=== PATIENT | male | born 1980 | race African-American/Black ===

== ENCOUNTER → 2017-07-22 17:12 | Emergency (ER) | payer SELFPAY ==
[2017-07-22 18:17] LABS: Hematocrit 44 % (42-52); Hemoglobin 14.4 g/dl (14.0-18.0); Mean Corpuscular HGB Conc 33 g/dl (31-36); Mean Corpuscular Hemoglobin 24 pg (27-31); Mean Corpuscular Volume 74 fL (80-94); Mean Platelet Volume 8 um3 (7.4-10.4); Red Blood Count 5.97 10^6/ul (4.0-5.4); Red Cell Distribution Width 15 % (10.5-15); White Blood Count 6.6 10^3/ul (3.5-10.8)
[2017-07-22 18:18] LABS: Comments Flag Yes
[2017-07-22 18:19] LABS: Add Diff/Slide Review? Slide Review Added
[2017-07-22 18:49] LABS: Alcohol < 10 mg/dL (<10)
[2017-07-22 18:54] LABS: ALT 43 U/L (7-52); AST 30 U/L (13-39); Albumin 4.3 g/dL (3.2-5.2); Alkaline Phosphatase 68 U/L (34-104); Anion Gap 8 mmol/L (2-11); BUN/Creatinine Ratio 10.1 (8-20); Blood Urea Nitrogen 11 mg/dL (6-24); CO2 Carbon Dioxide 26 mmol/L (22-32); Chloride 104 mmol/L (101-111); EGFR African American 97.4 (>60); EGFR Non-African American 75.7 (>60); Globulin 2.9 g/dL (2-4); Glucose 87 mg/dL (70-100); Magnesium 1.9 mg/dL (1.9-2.7); Potassium 4.4 mmol/L (3.5-5.0); Sodium 138 mmol/L (133-145); Total Protein 7.2 g/dL (6.4-8.9)
--- NOTE | 2017-07-22 18:56 | RAD ---
Indication: New onset seizure. Comparison: May 07, 2014 Technique: Noncontrast CT vertex of skull through foramen magnum. Report: The sulci, ventricles, and basal cisterns are normal for age. Borges matter white matter differentiation is preserved without evidence for edema. No intra or extra axial hemorrhage, mass, or fluid collection detected. Unremarkable visualized orbital contents. Unremarkable calvarium and skull base. Unremarkable scalp. The visualized paranasal sinuses and mastoid air spaces are clear. IMPRESSION: Negative unenhanced head CT.
[2017-07-22 19:07] LABS: Hypochromasia 2+; Microcytosis 1+; Target Cells 2+
[2017-07-22 19:36] VITALS: BP 149/88
--- NOTE | 2017-07-27 12:02 | ED ---
Elia Arguelles Alfonso, scribed for Sourav Lauren MD on 07/22/17 at 1741 . Complex/Multi-Sys Presentation - HPI Summary HPI Summary: This patient is a 36 year old M BIBA from [facility] to [facility] with a chief complaint of seizures last night. He stopped consuming ETOH 5 days ago. Symptoms alleviated by spontaneous resolution. Patient reports chills, diaphoresis, tremors, jaw clenching, muscle tightness, headache occipital, and tiredness. Patient denies urinary inconstancy, biting tongue, head trauma, and palpitations. SHx of alcohol abuse (4 beers and 12 shots of tequila daily). He denies having had a seizure before. - History Of Current Complaint Time Seen by Provider: 07/22/17 17:34 Hx Obtained From: Patient Onset/Duration: Sudden Onset, Lasting Hours - last night, Resolved Timing: Constant Severity Currently: Moderate Severity Initially: Moderate Alleviating Factor(s): spontaneous resolution Associated Signs And Symptoms: Positive: Other - chills, diaphoresis, tremors, jaw clenching, muscle tightness, headache occipital, and tiredness. Patient denies urinary inconstancy, biting tongue, head trauma, and palpitations. Related History: Other - He stopped consuming ETOH 5 days ago. - Allergies/Home Medications Allergies/Adverse Reactions: Allergies Allergy/AdvReac Type Severity Reaction Status Date / Time No Known Allergies Allergy Verified 03/01/15 10:50 PMH/Surg Hx/FS Hx/Imm Hx Sensory History: Denies: Hx Deafness Opthamlomology History: Denies: Hx Legally Blind - Surgical History Surgery Procedure, Year, and Place: DENIES Infectious Disease History: Denies: Hx Clostridium Difficile, Hx Hepatitis, Hx Human Immunodeficiency Virus (HIV), Hx of Known/Suspected MRSA, Hx Shingles, Hx Tuberculosis, Hx Known/ Suspected VRE, Hx Known/Suspected VRSA, History Other Infectious Disease, Traveled Outside the [place] in Last 30 Days - Family History Known Family History: Positive: Diabetes - Social History Alcohol Use: Daily Alcohol Amount: Currently at [facility]. 4 beers and 12 shots of tequila daily. Substance Use Type: Reports: None Smoking Status (MU): Light Every Day Tobacco Smoker Type: Cigarettes Amount Used/How Often: 5-6 cigs daily Length of Time of Smoking/Using Tobacco: 18 YEARS Have You Smoked in the Last Year: Yes Review of Systems Positive: Chills, Skin Diaphoresis, Other - tremors. Negative: Fever Negative: Erythema Negative: Sore Throat Negative: Palpitations, Chest Pain Negative: Shortness Of Breath, Cough Negative: Abdominal Pain, Vomiting, Diarrhea Negative: dysuria, hematuria, incontinence Positive: Other - jaw clenching, muscle tightness. Negative: Edema Negative: Rash Neurological: Other - seziure, headache occipital, and tiredness; negative biting tongue, head trauma, dizziness All Other Systems Reviewed And Are Negative: Yes Physical Exam Triage Information Reviewed: Yes Vital Signs Reviewed: Yes Appearance: Positive: Well-Appearing, No Pain Distress, Well-Nourished Skin: Positive: Warm, Dry Head/Face: Positive: Normal Head/Face Inspection Eyes: Positive: Conjunctiva Clear ENT: Positive: Normal ENT inspection Neck: Positive: Other: - Musculoskeletal ROM normal neck. (-) JVD, (-) Stridor, (-) Tracheal deviation Respiratory/Lung Sounds: Positive: Other - Effort normal. (-) Respiratory distress, (-) Wheezes, (-) Rales Cardiovascular: Positive: Other - Rhythm regular, rate normal, Heart sounds normal; Intact distal pulses; The pedal pulses are 2+ and symmetric. Radial pulses are 2+ and symmetric. (-) Murmur Abdomen Description: Positive: Other: - Soft. (-) Tenderness, (-) Distension, ( -) Guarding, (-) Rebound Musculoskeletal: Negative: Edema Left, Edema Right Neurological: Positive: Other - Alert, Oriented x3, Strength normal, Cranial nerves II-XII are grossly intact. (-) Dysmetria, (-) Nystagmus, (-) Ataxia by finger to nose testing, (-) Sensory deficit. Psychiatric: Positive: Affect/Mood Appropriate - Alpha Coma Scale Best Eye Response: 4 - Spontaneous Best Motor Response: 6 - Obeys Commands Best Verbal Response: 5 - Oriented Diagnostics - Laboratory Result Diagrams: 07/22/17 17:47 07/22/17 17:47 Lab Statement: Any lab studies that have been ordered have been reviewed, and results considered in the medical decision making process. - CT Brain CT Interpretation Completed By: Radiologist - Negative unenhanced head CT. ED physician has reviewed this radiology report and agrees. - EKG 7704 Cardiac Rate: NL - BPM 71 EKG Rhythm: Sinus Rhythm EKG Interpretation: No STEMI. Complex Multi-Symp Course/Dx Assessment/Plan: This patient is a 36 year old M BIBA from [facility] to [facility] with a chief complaint of seizures last night. He stopped consuming ETOH 5 days ago. Symptoms alleviated by spontaneous resolution. Patient reports chills, diaphoresis, tremors, jaw clenching, muscle tightness, headache occipital, and tiredness. Patient denies urinary inconstancy, biting tongue, head trauma, and palpitations. SHx of alcohol abuse (4 beers and 12 shots of tequila daily). He denies having had a seizure before. There are no signs of alcohol withdrawal currently. An EKG reveals NSR. CT Brain reveals Negative unenhanced head CT. ED physician has reviewed this radiology report and agrees. Patient will be discharged with follow up from PCP and neurology. The patient is agreeable with this plan. - Diagnoses Provider Diagnoses: Alcoholism, New onset seizure Discharge - Discharge Plan Condition: Stable Disposition: HOME Patient Education Materials: New-Onset Seizure in Adults (ED) Referrals: Ricardo Arboleda MD [Medical Doctor] - 3 Days [facility] REFERRAL [Outside] - 3 Days Additional Instructions: RETURN TO THE EMERGENCY DEPARTMENT FOR CHANGING OR WORSENING SYMPTOMS. FOLLOW UP WITH NEUROLOGIST. The documentation as recorded by the Elia deutsch Alfonso accurately reflects the service I personally performed and the decisions made by , Sourav Lauren MD.
== END | disposition home or self-care (01) ==
LOC: ED 17:12
DX: R68.83 Chills (without fever) (principal); F10.20 Alcohol dependence, uncomplicated; R56.9 Unspecified convulsions
CPT/HCPCS: 36415; 70450; 80053; 80320; 83605; 83735; 85025; 85610; 93005; 99282; G0480

== ENCOUNTER 2017-12-22 00:02 | Emergency (ER) | payer BC ==
[2017-12-22 02:26] VITALS: BP 0/0
== END 2017-12-22 02:27 | disposition left against medical advice (07) ==
LOC: ED 00:02
DX: R05 Cough (principal); Z53.21 Procedure and treatment not carried out due to patient leaving prior to being seen by health care provider

== ENCOUNTER 2018-04-29 19:36 | Emergency (ER) | payer SELFPAY ==
[2018-04-29] MEDS ORDERED: Ketorolac INJ* 30 MG/ML 1 ML VIAL IV PUSH ONE (20:09)
[2018-04-29] MEDS ORDERED: Ketorolac INJ* 30 MG/ML 1 ML VIAL ONE (20:19)
[2018-04-29 20:46] LABS: ABS Basophils 0 10^3/ul (0-0.2); ABS Eosinophils 0.2 10^3/ul (0-0.6); ABS Lymphocytes 2.1 10^3/ul (1.0-4.8); ABS Monocytes 0.5 10^3/ul (0-0.8); ABS Neutrophils 2.3 10^3/ul (1.5-7.7); ABS Nucleated RBC 0 10^3/ul; Eosinophil % 3.6 % (0-6); Hematocrit 42 % (42-52); Hemoglobin 13.7 g/dl (14.0-18.0); Lymphocyte % 41.5 % (25-47); Mean Corpuscular HGB Conc 33 g/dl (31-36); Mean Corpuscular Hemoglobin 23 pg (27-31); Mean Corpuscular Volume 70 fL (80-94); Nucleated Red Blood Cells % 0.1; Platelet Count 186 10^3/ul (150-450); Red Blood Count 6.02 10^6/ul (4.00-5.40); Red Cell Distribution Width 16 % (10.5-15); White Blood Count 5.1 10^3/ul (3.5-10.8)
[2018-04-29 20:53] LABS: INR 0.88 (0.77-1.02)
--- NOTE | 2018-04-29 20:58 | RAD ---
INDICATION: Chest pain. COMPARISON: Comparison is made with a prior chest x-ray study from May 07, 2014. TECHNIQUE: A portable view of the chest was obtained. FINDINGS: Cardiac and mediastinal contours appear to be within normal limits. The lungs are clear. No pleural effusion is seen. IMPRESSION: NO EVIDENCE FOR ACUTE DISEASE.
[2018-04-29 21:03] LABS: EGFR Non-African American 61.5 (>60)
[2018-04-29 21:37] VITALS: BP 154/78
--- NOTE | 2018-04-29 21:54 | ED ---
Jose Elias Arguelles Elizabeth, scribed for Stanton Kelly MD on 04/29/18 at 2009 . HPI Chest Pain - HPI Summary HPI Summary: This patient is a 37 year old M presenting to [facility] with a chief complaint of constant left chest wall pain since 2 months ago. The patient reports that the symptoms have worsened in the last few days and says he feels like someone is standing on my chest. The patient rates the pain 10/10 in severity. Symptoms aggravated by coughing and movement. Symptoms alleviated by nothing. Patient reports cough. Patient denies cardiac hx or chest injury. The patient has hx of smoking. 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 - History of Current Complaint Chief Complaint: EDChestPainROMI Time Seen by Provider: 04/29/18 19:55 Hx Obtained From: Patient Onset/Duration: Started Weeks Ago - 2 months ago, Atraumatic, Still Present, Worse Since - a few sa Timing: Constant, Lasting Weeks - 2 months ago Initial Severity: Mild Current Severity: Moderate Pain Intensity: 10 Pain Scale Used: 0-10 Numeric Chest Pain Location: Left Lateral Chest Pain Radiates: No Character: Cough, Non-Productive, Other: - "feels like someone is standing on my chest" Aggravating Factor(s): Movement, Other: - cough Alleviating Factor(s): Nothing Associated Signs and Symptoms: Positive: Chest Pain - left chest wall pain, Cough - Allergy/Home Medications Allergies/Adverse Reactions: Allergies Allergy/AdvReac Type Severity Reaction Status Date / Time No Known Allergies Allergy Verified 04/29/18 19:50 PMH/Surg Hx/FS Hx/Imm Hx Cardiovascular History: Denies: Hx Coronary Artery Disease, Hx Hypertension, Hx Myocardial Infarction Sensory History: Denies: Hx Legally Blind, Hx Deafness Opthamlomology History: Denies: Hx Legally Blind - Surgical History Surgery Procedure, Year, and Place: DENIES Infectious Disease History: No Infectious Disease History: Denies: Hx Clostridium Difficile, Hx Hepatitis, Hx Human Immunodeficiency Virus (HIV), Hx of Known/Suspected MRSA, Hx Shingles, Hx Tuberculosis, Hx Known/ Suspected VRE, Hx Known/Suspected VRSA, History Other Infectious Disease, Traveled Outside the [place] in Last 30 Days - Family History Known Family History: Positive: Diabetes - Social History Alcohol Use: Daily Alcohol Amount: Currently at [facility]. 4 beers and 12 shots of tequila daily. Substance Use Type: Reports: None Smoking Status (MU): Light Every Day Tobacco Smoker Type: Cigarettes Amount Used/How Often: 5-6 cigs daily Length of Time of Smoking/Using Tobacco: 18 YEARS Have You Smoked in the Last Year: Yes Review of Systems Negative: Fever Negative: Epistaxis Positive: Chest Pain - left chest wall pain Positive: Cough All Other Systems Reviewed And Are Negative: Yes Physical Exam - Summary Physical Exam Summary: VITAL SIGNS: Reviewed. GENERAL: Patient is a well-developed and nourished MALE who is lying comfortable in the stretcher. Patient is not in any acute respiratory distress. HEAD AND FACE: No signs of trauma. No ecchymosis, hematomas or skull depressions. No sinus tenderness. EYES: PERRLA, EOMI x 2, No injected conjunctiva, no nystagmus. EARS: Hearing grossly intact. Ear canals and tympanic membranes are within normal limits. MOUTH: Oropharynx within normal limits. NECK: Supple, trachea is midline, no adenopathy, no JVD, no carotid bruit, no c- spine tenderness, neck with full ROM. CHEST: Symmetric, tenderness over the left lateral chest wall at palpation LUNGS: Clear to auscultation bilaterally. No wheezing or crackles. CVS: Regular rate and rhythm, S1 and S2 present, no murmurs or gallops appreciated. ABDOMEN: Soft, non-tender. No signs of distention. No rebound no guarding, and no masses palpated. Bowel sounds are normal. EXTREMITIES: FROM in all major joints, no edema, no cyanosis or clubbing. NEURO: Alert and oriented x 3. No acute neurological deficits. Speech is normal and follows commands. SKIN: Dry and warm Triage Information Reviewed: Yes Vital Signs On Initial Exam: Initial Vitals Temp Pulse Resp BP Pulse Ox 97.4 F 65 16 124/81 98 04/29/18 19:48 04/29/18 19:48 04/29/18 19:48 04/29/18 19:48 04/29/18 19:48 Vital Signs Reviewed: Yes Diagnostics - Vital Signs Vital Signs Temp Pulse Resp BP Pulse Ox 04/29/18 19:48 97.4 F 65 16 124/81 98 - Laboratory Result Diagrams: 04/29/18 20:34 04/29/18 20:33 Lab Statement: Any lab studies that have been ordered have been reviewed, and results considered in the medical decision making process. - Radiology CXR Xray Interpretation: No Acute Changes - IMPRESSION: NO EVIDENCE FOR ACUTE DISEASE. Dr. Kelly has reviewed this report. Radiology Interpretation Completed By: Radiologist - EKG 19:34 Cardiac Rate: NL - at 67 bpm EKG Rhythm: Sinus Rhythm ST Segment: Non-Specific EKG Interpretation: non-specific T wave changes in the inferior leads Re-Evaluation - Re-Evaluation first re-eval Re-Evaluation Time: 21:25 Change: Improved Comment: Reviewed imaging and lab results with patient. Discussed discharge plan with patient. Chest Pain Course/Dx - Course Course Of Treatment: Patient is 37 y/o M with no cardiac PMHx reporting worsening constant left lateral chest wall pain aggravated by coughing and movement for 2 months. Left lateral chest wall tender on exam, workup is negative. Symptoms are consistent will musculoskeletal chest wall pain. Imaging and lab results reviewed with patient. In the ED course the patient was given Toradol. Patient will be discharged home with prescription for Motrin and follow up from primary care physician in 1-2 days. The patient is agreeable with this plan. - Diagnoses Provider Diagnoses: Musculoskeletal chest pain, Chest wall pain Discharge - Sign-Out/Discharge Documenting (check all that apply): Discharge/Admit/Transfer - Discharge Plan Condition: Stable Disposition: HOME Discharge Disposition Comment: discharge home Prescriptions: Ibuprofen TAB* [Motrin TAB* 800 MG] 800 mg PO Q6H PRN #30 tab PRN Reason: Pain Patient Education Materials: Chest Wall Pain (ED) Forms: *Work Release Referrals: Elbert Chavis MD [Primary Care Provider] - 2 Days (follow up with primary care physician in 1-2 days.) Additional Instructions: Follow up with primary care physician in 1-2 days. Return to emergency department with any new or worsening symptoms. The documentation as recorded by the Jose Elias deutsch Elizabeth accurately reflects the service I personally performed and the decisions made by Leticia griffin Abdul, MD.
== END 2018-04-29 21:36 | disposition home or self-care (01) ==
LOC: ED 19:36
DX: R07.89 Other chest pain (principal); F17.210 Nicotine dependence, cigarettes, uncomplicated
CPT/HCPCS: 36415; 71045; 80053; 82550; 83735; 84484; 85025; 85379; 85610; 85730; 93005; 96374; 99282; J1885

== ENCOUNTER 2018-08-02 22:59 | Emergency (ER) | payer SELFPAY ==
[2018-08-03] MEDS ORDERED: Amoxicillin/Clavulanate TAB* 875 MG PO ONE (00:10)
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
--- NOTE | 2018-08-03 01:11 | RAD ---
EXAM: CT Maxillofacial Sinuses Without Intravenous Contrast CLINICAL HISTORY: 37 years old, male; Signs and symptoms; Nasal congestion; Additional info: Severe sinus pressure/rhinolith TECHNIQUE: Computed tomography images of the maxillofacial sinuses without intravenous contrast. All CT scans at this facility use at least one of these dose optimization techniques: automated exposure control; mA and/or kV adjustment per patient size (includes targeted exams where dose is matched to clinical indication); or iterative reconstruction. Coronal and sagittal reformatted images were created and reviewed. COMPARISON: No relevant prior studies available. FINDINGS: Maxillary sinuses: Normal. No air-fluid levels. Sphenoid sinuses: Normal. No air-fluid levels. Sphenoethmoid recesses are patent. Frontal sinuses: Normal. No air-fluid levels. Ethmoid air cells: Normal. No air-fluid levels. Ostiomeatal units are patent. Nasal cavity/septum: Minimal right nasal septal deviation and tiny spur. Nasal cavity is normal. Mastoid air cells: Normal. No effusion. Bones/joints: No acute fracture. No suspicious osseous lesions. Soft tissues: Normal. No hernias. IMPRESSION: Normal sinus CT.
[2018-08-03 01:27] VITALS: BP 131/70
== END 2018-08-03 01:26 | disposition home or self-care (01) ==
LOC: ED 22:59
DX: J32.9 Chronic sinusitis, unspecified (principal); R51 Headache; F17.210 Nicotine dependence, cigarettes, uncomplicated
CPT/HCPCS: 70486; 99282; A9270-GY

== ENCOUNTER 2019-11-18 21:03 | Emergency (ER) | payer SELFPAY ==
--- NOTE | 2019-11-18 21:27 | ED ---
HPI Chest Pain - HPI Summary HPI Summary: This patient is a 38 year old male presenting to [facility] with a chief complaint of chest pain. He states he had an episode of chest pain yesterday, then today with dinner at a restaurant it returned. He states he had sweats and chills. He has not taken any medications for his symptoms. He describes the pain as a heavy pain and rates it 2/10 in severity. He states no PMHx. He states he had a beer with dinner tonight. He states he had marijuana earlier today. - History of Current Complaint Chief Complaint: EDChestPainROMI Time Seen by Provider: 11/18/19 21:15 Hx Obtained From: Patient Pain Intensity: 2 Pain Scale Used: 0-10 Numeric - Allergy/Home Medications Allergies/Adverse Reactions: Allergies Allergy/AdvReac Type Severity Reaction Status Date / Time No Known Allergies Allergy Verified 11/18/19 21:12 Home Medications: Home Medications NK [No Home Medications Reported] 11/18/19 [History Confirmed 11/18/19] PMH/Surg Hx/FS Hx/Imm Hx Cardiovascular History: Denies: Hx Coronary Artery Disease, Hx Hypertension, Hx Myocardial Infarction Sensory History: Denies: Hx Legally Blind, Hx Deafness Opthamlomology History: Denies: Hx Legally Blind - Surgical History Surgery Procedure, Year, and Place: DENIES Infectious Disease History: No Infectious Disease History: Denies: Hx Clostridium Difficile, Hx Hepatitis, Hx Human Immunodeficiency Virus (HIV), Hx of Known/Suspected MRSA, Hx Shingles, Hx Tuberculosis, Hx Known/ Suspected VRE, Hx Known/Suspected VRSA, History Other Infectious Disease, Traveled Outside the [place] in Last 30 Days - Family History Known Family History: Positive: Diabetes - Social History Alcohol Use: Daily Alcohol Amount: Currently at [employer]. 4 beers and 12 shots of tequila daily. Hx Substance Use: Yes Substance Use Type: Reports: Marijuana Hx Tobacco Use: Yes Smoking Status (MU): Light Every Day Tobacco Smoker Type: Cigarettes Amount Used/How Often: 5-6 cigs daily Length of Time of Smoking/Using Tobacco: 18 YEARS Have You Smoked in the Last Year: Yes Review of Systems Positive: Chills, Skin Diaphoresis Positive: Chest Pain All Other Systems Reviewed And Are Negative: Yes Physical Exam - Summary Physical Exam Summary: General: Well-developed, Well-nourished MALE. No acute distress. Mildly anxious appearing. HEENT: Normocephalic, Atraumatic. Eyes: Conjuctiva normal, PERRL. Oropharynx: Clear, mucous membranes moist, (-) exudates. Neck: Soft, FROM, (-) lymphadenopathy, (-) thyromegaly, (-) JVD. Cardiovascular: Normal sinus rhythm, (-) murmur. Lungs: Clear to auscultation bilaterally (-) wheezes, (-) rales, (-) rhonchi. Abdomen: Soft, non-tender, non-distended, (-) organomegaly, normal bowel sounds. Back: (-) CVA tenderness Extremities: No edema. Skin: Warm, dry, (-) rash. Neuro: Alert and oriented x3, no focal deficits. Psychiatric: Mood normal, affect normal. Triage Information Reviewed: Yes Vital Signs On Initial Exam: Initial Vitals Temp Pulse Resp BP Pulse Ox 98.5 F 67 16 140/83 100 11/18/19 21:10 11/18/19 21:10 11/18/19 21:10 11/18/19 21:10 11/18/19 21:10 Vital Signs Reviewed: Yes Procedures - Sedation Patient Received Moderate/Deep Sedation with Procedure: No Diagnostics - Vital Signs Vital Signs Temp Pulse Resp BP Pulse Ox 11/18/19 21:10 98.5 F 67 16 140/83 100 - Laboratory Result Diagrams: 11/18/19 21:35 11/18/19 21:35 Lab Statement: Any lab studies that have been ordered have been reviewed, and results considered in the medical decision making process. - EKG 2105 Cardiac Rate: NL - 66 BPM EKG Rhythm: Sinus Rhythm Summary of EKG Findings: No STEMI. ED physician has reviewed and interpreted this EKG. Re-Evaluation - Re-Evaluation First Eval Re-Evaluation Time: 22:23 Comment: Patient refused pain medication Chest Pain Course/Dx - Course Course Of Treatment: 38 year old male presents with chest pain. days. no associated s/s. no s/s of acute illness. exam and workup essentially negative including serial troponins. patient admits he is exhausted from working over 90 hours per week. possible diagnosis musculoskeletal chest pain. advised rest, fluids, ibuprofen as needed. follow up with PCP. follow up sooner for any worsening symptoms. - Diagnoses Provider Diagnoses: Chest pain Discharge ED - Sign-Out/Discharge Documenting (check all that apply): Patient Departure - Discharge - Discharge Plan Condition: Stable Disposition: HOME Patient Education Materials: Chest Pain (ED) Forms: *Work Release Referrals: Elbert Chavis MD [Primary Care Provider] - Additional Instructions: Return to ED with new or worsening symptoms. - Billing Disposition and Condition Condition: STABLE Disposition: Home - Attestation Statements Document Initiated by Scribe: Yes Documenting Scribe: Bandar Singleton Provider For Whom Favioe is Documenting (Include Credential): Francisca Verdin MD Scribe Attestation: Bandar Arguelles, scribed for Francisca Verdin MD on 11/19/19 at 0129. Scribe Documentation Reviewed: Yes Provider Attestation: The documentation as recorded by the scribeBandar accurately reflects the service I personally performed and the decisions made by me, Francisca Verdin MD Status of Scribe Document: Viewed
[2019-11-18 21:48] LABS: Hematocrit 39 % (42-52); Hemoglobin 12.9 g/dL (14.0-18.0); Mean Corpuscular HGB Conc 34 g/dL (31-36); Mean Corpuscular Hemoglobin 24 pg (27-31); Mean Corpuscular Volume 72 fL (80-94); Mean Platelet Volume 7.5 fL (7.4-10.4); Platelet Count 189 10^3/uL (150-450); Red Blood Count 5.34 10^6 /uL (4.18-5.48); Red Cell Distribution Width 15 % (10-15); White Blood Count 4.6 10^3/uL (3.5-10.8)
[2019-11-18 21:51] LABS: INR 0.98 (0.82-1.09)
[2019-11-18 21:59] LABS: Albumin 4.3 g/dL (3.2-5.2); BUN/Creatinine Ratio 14.6 (8-20); Calcium 9.3 mg/dL (8.6-10.3); EGFR African American 96.8 (>60); Globulin 2.2 g/dL (2-4); Potassium 3.6 mmol/L (3.5-5.0); Total Bilirubin 0.5 mg/dL (0.2-1.0); Total Protein 6.5 g/dL (6.4-8.9)
[2019-11-18 22:20] LABS: ABS Basophils 0.1 10^3/ul (0-0.2); ABS Eosinophils 0.1 10^3/ul (0-0.6); ABS Lymphocytes 1.8 10^3/ul (1.0-4.8); ABS Monocytes 0.4 10^3/ul (0-0.8); ABS Neutrophils 2.2 10^3/ul (1.5-7.7); Eosinophil % 2.7 %; Lymphocyte % 39.5 %; Nucleated Red Blood Cells % 0.1
[2019-11-19 02:15] VITALS: BP 132/78
== END 2019-11-19 01:24 | disposition home or self-care (01) ==
LOC: ED 21:03
DX: R07.89 Other chest pain (principal); R68.83 Chills (without fever); R61 Generalized hyperhidrosis; F17.210 Nicotine dependence, cigarettes, uncomplicated
CPT/HCPCS: 36415; 71045; 80053; 83605; 83880; 84484; 85025; 85610; 93005; 99282